=== PATIENT | male | born 1995 | race Caucasian/White ===

== ENCOUNTER 2018-05-09 19:38 | Emergency (ER) | payer BC, OTHER ==
[2018-05-09 19:52] VITALS: BP 139/93
--- NOTE | 2018-05-09 20:14 | UC ---
Skin Complaint HPI - HPI Summary HPI Summary: This pt is a 23 y/o male presenting to [facility] c/o insect sting to right arm since 4 hours ago. Pt reports he was walking between buildings in [facility] when he got stung. He is unsure of what stung him but he believes it was a wasp. He states now this area is warm, red, and swollen. He notes some soreness on this site as well. Pt denies known allergy to bees or wasp. Denies swelling of his lips or tongue, difficulty breathing, throat tightening, or rash. Pt placed iced to arm [employer] with mild relief. - History of Current Complaint Chief Complaint: UCSkin Time Seen by Provider: 05/09/18 20:11 Stated Complaint: INSECT BITE Hx Obtained From: Patient Onset/Duration: Lasting Hours, Still Present Skin Exposure Onset/Duration: Hours Ago Timing: Constant Current Severity: Moderate Pain Intensity: 5 Pain Scale Used: 0-10 Numeric Location: Other - right arm Character: Swelling, Pain, Redness Aggravating Factor(s): Nothing Alleviating Factor(s): Nothing Associated Signs & Symptoms: Positive: Tenderness. Negative: Nausea, Vomiting, Fever, Chills, Hoarseness, Throat Tightening, Abdominal Pain, Lightheadedness, Red Streaks, Joint Swelling - Allergy/Home Medications Allergies/Adverse Reactions: Allergies Allergy/AdvReac Type Severity Reaction Status Date / Time No Known Allergies Allergy Verified 05/21/16 21:50 Review of Systems Constitutional: Negative Skin: Other - Redness, swelling and warmth on right arm Eyes: Negative ENT: Negative Respiratory: Negative Cardiovascular: Negative Gastrointestinal: Negative Genitourinary: Negative Motor: Negative Neurovascular: Negative Musculoskeletal: Negative Neurological: Negative Psychological: Negative All Other Systems Reviewed And Are Negative: Yes PMH/Surg Hx/FS Hx/Imm Hx - Additional Past Medical History Additional PMH: PMHx: Lyme disease (dx 5 years ago) Other Endocrine History: DENIES: diabetes Other Cardiovascular History: DENIES: HTN - Surgical History Surgical History: Yes Surgery Procedure, Year, and Place: pilonidal cyst x2 - Family History Known Family History: Negative: Hypertension, Diabetes - Social History Alcohol Use: Weekly Alcohol Amount: weekend Substance Use Type: Marijuana Smoking Status (MU): Light Every Day Tobacco Smoker Type: Cigarettes Amount Used/How Often: 2-3 cigs per Length of Time of Smoking/Using Tobacco: 3 years Physical Exam - Summary Physical Exam Summary: General: well-appearing, no pain distress Skin: warm, dry. RUE: 15 mm diameter erythematous area over the right triceps which is mildly TTP. Head: normal Eyes: EOMI, EMILE ENT: normal Neck: supple, nontender Respiratory: CTA, breath sounds present Cardiovascular: RRR Abdomen: soft, nontender Bowel: present Musculoskeletal: normal, strength/ROM intact Neurological: normal, sensory/motor intact, A&O x3 Psychological: affect/mood appropriate Triage Information Reviewed: Yes Vital Signs: Initial Vital Signs Temp 98.6 F 05/09/18 19:46 Pulse 88 05/09/18 19:46 Resp 16 05/09/18 19:46 BP 139/93 05/09/18 19:46 Pulse Ox 98 05/09/18 19:46 Vital Signs Reviewed: Yes Course/Dx - Course Course Of Treatment: Medications reviewed. BP noted and advised to follow up with PCP. AT THIS TIME, THE LESION APPEARS TO BE A LOCALIZED REACTION TO AN INSECT BITE; RX PREDNISONE, USE BENADRYL NEEDED. THE PATIENT REPORTS GETTING A CELLULITIS AT A BEE STING BITE IN THE PAST; KEFLEX RX TO BE USE IF NEEDED. - Diagnoses Provider Diagnoses: RIGHT ARM INSECT BITE. Elevated BP without diagnosis of HTN Discharge - Sign-Out/Discharge Documenting (check all that apply): Patient Departure - Discharge All imaging exams completed and their final reports reviewed: No Studies - Discharge Plan Condition: Stable Disposition: HOME Prescriptions: Cephalexin CAP* [Keflex CAP*] 500 mg PO QID #40 cap predniSONE TAB* [Deltasone 20 MG TAB*] 40 mg PO DAILY PRN #8 tab PRN Reason: Allergy Symptoms Patient Education Materials: Insect Bite or Sting (ED) Referrals: Caroline Lei [Primary Care Provider] - Additional Instructions: FOLLOW UP WITH YOUR DOCTOR IF NOT COMPLETELY IMPROVED. GET RECHECKED FOR ANY WORSENING OF YOUR CONDITION OR QUESTIONS OR CONCERNS. - Billing Disposition and Condition Condition: STABLE Disposition: Home - Attestation Statements Document Initiated by Scribe: Yes Documenting Scribe: Ericka Rios Provider For Whom Scribe is Documenting (Include Credential): Nemesio Arceo MD Scribe Attestation: Ericka Sweeney, scribed for Nemesio Arceo MD on 05/09/18 at 2131. Scribe Documentation Reviewed: Yes Provider Attestation: The documentation as recorded by the scribe, Ericka Rios accurately reflects the service I personally performed and the decisions made by me, Nemesio Arceo MD
[2018-05-09] MEDS ORDERED: predniSONE TAB* 20 MG PO ONE (20:16)
== END 2018-05-09 20:20 | disposition home or self-care (01) ==
LOC: UCEAST 19:38
DX: T63.441A Toxic effect of venom of bees, accidental (unintentional), initial encounter (principal); Y92.215 Trade school as the place of occurrence of the external cause; R03.0 Elevated blood-pressure reading, without diagnosis of hypertension; F17.210 Nicotine dependence, cigarettes, uncomplicated
CPT/HCPCS: 99202; G0463; J7512